=== PATIENT | male | born 1980 | race Caucasian/White ===

== ENCOUNTER 2025-04-18 13:41 | Emergency (ER) | payer OTHER, SELFPAY ==
[2025-04-18 13:43] VITALS: BP 146/66
[2025-04-18 15:24] VITALS: BP 121/60
--- NOTE | 2025-04-18 16:43 | ED.GENMED ---
History of Present Illness
General
Chief Complaint: Abdominal Symptoms
Source: patient
Exam Limitations: none
Time Seen by Provider: 04/18/25 16:27
History of Present Illness
History of Present Illness:
See MDM
Past History
Past History
ED Past Medical History: None
ED Past Surgical History: None
Social History
Tobacco: Smoker
Personal: Single
Living: with family
Phy Exam
Physical Exam
Physical Exam:
See MDM
Course
Orders/Labs/Results
Orders:
Orders
04/18/25 16:43
CT Abd/pel Without Iv Or Oral Urgent
Comment:
Reason For Exam: left flank pain
04/18/25 19:16
Magnesium Citrate [Citroma] 300 ml PO ONCE ONE
Vital Signs
Initial and Last Documented VS:
Initial Vital Signs
Temp Pulse Resp BP Pulse Ox
98.4 F 57 16 146/66 99
04/18/25 13:43 04/18/25 13:43 04/18/25 13:43 04/18/25 13:43 04/18/25 13:43
Last Documented Vital Signs
Temp Pulse Resp BP Pulse Ox
97.9 F 53 18 109/62 99
04/18/25 15:24 04/18/25 18:56 04/18/25 18:56 04/18/25 19:05 04/18/25 18:56
MDM/Problems Addressed
Differential Diagnosis Includes:
HPI and MDM Narrative:
44-year-old male presenting with intermittent abdominal pain. He localizes the pain to the left abdomen. He states that the pain is intermittent. It has progressively worsened over the past 5 days or so. He does acknowledge that he initially
thought this could be constipation related to his Suboxone prescription. He went to an outside hospital yesterday and had a CT of abdomen/pelvis and was told that everything looked okay. Due to the persistent pain, he went to urgent care where
they performed an x-ray. Patient was told that his constipation may cause 'a blockage'. He was sent in for further evaluation. Patient does acknowledge that this is likely constipation. Given the pain going into his testicle and his left flank,
will obtain CT to rule out any evidence of kidney stone pathology
Physical exam
General: Well appearing and non-toxic
HEENT: protecting airway
Neck: appears supple
CV: No evidence of cyanosis
Resp: No accessory muscle use
Abd: Non-distended. Soft and nontender
Extremities: No deformities
Neuro: alert
Psych: Normal affect
Skin: Intact
Problems Addressed including Acute and Chronic Conditions affecting care:
1. Intermittent abdominal and flank pain
Acuity: acute
Prognosis: stable
Details: Likely related to Suboxone induced constipation. Will obtain CT
Updates
CT consistent with constipation. Patient feels comfortable at home. Will start magnesium citrate. Patient was offered enema but he declined
Differential Diagnosis (but not limited to): Kidney stone, constipation
Testing considered: Abdominal x-ray
Drug therapy (if applicable): OTC meds, please see d/c instruction regarding Rx drugs
Amount and/or Complexity of Data Reviewed
Clinical info obtained from: Patient
External data reviewed: Patient presents with blood work performed at urgent care today. I evaluated the blood work and there is no significant abnormalities
Labs I independently reviewed (but not limited to): N/A
Radiology: The CT scan was personally and independently reviewed. In addition, official CT report reviewed.
Pulse Ox: not hypoxic
EKG independently reviewed: N/A
Cylinder Press Operator: N/A
Critical Care: N/A
Risk of Complication:
Social Determinants of health: Good social support
Discussed with other providers: N/A
Escalation of Care includes Admit/Obs: After being observed in the Emergency Department, pt stable for discharge.
Occasional wrong word or 'sound a like' substitutions may have occurred due to the inherent limitations of voice recognition software. Read the chart carefully and recognize, using context, where substitutions have occurred.
*Pulse Oximetry
SaO2: 99
Oxygen Mode of Delivery: Room air
Patient hypoxic: no
*Critical Care Note
Total Time (30-74mins, 75-104mins- exclusive of procedures): Not Applicable
ED Attending Note
-
Portions of this chart may have been created with voice recognition software.� Occasional wrong word or��sound alike� substitutions may have occurred due to the inherent limitations of voice recognition software.
Discharge Plan
Departure
Patient Disposition: Home (Routine Discharge)
Date of Disposition: 04/18/25
Time of Disposition: 19:18
Patient with high blood pressure during this ER visit?: No
Discharge Problem:
Constipation due to pain medication
Instructions: Constipation, Adult (DC)
Prescriptions:
No Action
amoxicillin 500 MG capsule
500 mg PO TID Qty: 30 0RF
oxycodone-acetaminophen [Percocet] 1 EACH tablet
1 ea PO Q4HPRN PRN (Reason: PAIN) Qty: 18 0RF
penicillin V potassium 500 MG tablet
500 mg PO Q6 Qty: 39 0RF
hydrocodone-acetaminophen 5 MG/500 MG tablet
1 tab PO Q4HPRN PRN (Reason: pain) Qty: 15 0RF
penicillin V potassium 500 MG tablet
500 mg PO QID Qty: 40 0RF
tramadol 50 MG tablet
100 mg PO Q4HPRN PRN (Reason: PAIN) Qty: 20 0RF
Referrals:
NONE,* [Family Provider, Internal Medicine]
Activity Restrictions/Additional Instructions:
Please return for any worsening symptoms.
You may return at any time if you have further concerns.
Please follow up with your doctor at the first available appointment, preferably this week.
Please take the magnesium citrate tomorrow. Please start with a daily stool softener moving forward. If symptoms persist, please start taking MiraLAX twice a day until symptoms resolve.
Thank you for choosing [facility].
Interventions
Interventions:
*Risk Screen - Suicide Last Done: 04/18/25 16:29
*General Assessment Last Done: 04/18/25 16:29
*Neglect/Abuse Screening Last Done: 04/18/25 16:29
*ED- Fall Risk Assessment Last Done: 04/18/25 16:29
*ED COVID-19 Vaccine History Last Done: 04/18/25 18:54
VS-Ngyoow-Pmjicuxltt Assessment Last Done: 04/18/25 17:45
Discharge Date and Time
Print Language: HUNGARIAN
[2025-04-18 19:05] VITALS: BP 109/62
[2025-04-18] MEDS: CITROMA 300 ML PO (19:25)
== END 2025-04-18 19:30 | disposition home or self-care (01) ==
LOC: EMR 13:41
PROVIDERS: EMERGENCY PHYSICIAN Student in an Organized Health Care Education/Training Program
DX: K59.03 Drug induced constipation (principal); T50.7X5A Adverse effect of analeptics and opioid receptor antagonists, initial encounter; F17.200 Nicotine dependence, unspecified, uncomplicated
CPT/HCPCS: 99284; 74176